=== PATIENT | female | born 1995 | race Caucasian/White ===

== ENCOUNTER 2024-09-21 15:09 | Emergency (ER) | payer SELFPAY ==
[~2024-09-21] VITALS: Ht 165.1 cm; Wt 59.9 kg
[2024-09-21] MEDS ORDERED: HYDR-3972 PO (16:30)
[2024-09-21] MEDS: HYDROCODONE/APAP 5-325MG TABLET PO ONE (16:34)
[2024-09-21] MEDS ORDERED: HYDROCODONE/APAP 5-325MG TABLET ONE (16:34)
[2024-09-21 16:45] VITALS: BP 107/66; O2SAT 98
== END 2024-09-21 16:46 | disposition home or self-care (01) ==
LOC: ER 15:09
DX: S52.121A Displaced fracture of head of right radius, initial encounter for closed fracture (principal); S63.591A Other specified sprain of right wrist, initial encounter; S40.011A Contusion of right shoulder, initial encounter; W01.0XXA Fall on same level from slipping, tripping and stumbling without subsequent striking against object, initial encounter; Y93.01 Activity, walking, marching and hiking; Y92.89 Other specified places as the place of occurrence of the external cause; Y99.8 Other external cause status
CPT/HCPCS: 73020; 73070; 73100; A4606; A4663